=== PATIENT | female | born 1970 | race Caucasian/White ===

== ENCOUNTER 2024-02-11 19:12 | Observation (INO) | payer BC ==
[2024-02-11 19:57] LABS: #Basophils 0.02 10x3/uL (0.0-0.2); #Monocytes 1.03 10x3/uL (0.0-1.1); #Neutrophils 14.67 10x3/uL (1.5-8.4); %Basophils 0.1 % (0.0-2.0); %Monocytes 5.7 % (0.0-10.0); %Neutrophils 81.8 % (40.0-75.0); Hematocrit 36.1 % (34.9-44.5); Hemoglobin 12.9 g/dL (12.0-15.5); Mean Corpuscular HGB CONC 35.7 g/dL (32.0-36.0); Mean Corpuscular Hemoglobin 29.5 pg (27.0-33.0); Mean Corpuscular Volume 82.6 fL (81.6-98.3); Platelet Count 230 10x3/uL (150-450); RBC Distribution Width 12.2 % (11.5-14.5); Red Blood Cell (RBC) Count 4.37 10x6/uL (3.90-5.03)
[2024-02-11 20:13] LABS: ALT (SGPT) 16 U/L (8-55); AST (SGOT) 16 U/L (5-34); Albumin 3.7 g/dL (3.5-5.0); Alkaline Phosphatase 75 U/L (40-110); Anion Gap 13 mmol/L (10-20); BUN (Urea Nitrogen) 10 mg/dL (9.8-20.1); Bilirubin, Total 0.9 mg/dL (0.2-1.2); Calc. Creatinine Clearance 0 mL/min (70-130); Calcium 9.4 mg/dL (7.8-10.44); Carbon Dioxide 25 mmol/L (22-29); Chloride 101 mmol/L (98-107); Estimated GFR 82; Globulin 3.9 g/dL (2.4-3.5); Glucose 267 mg/dL (70-105); Lipase 11 U/L (8-78); Potassium 3.5 mmol/L (3.5-5.1); Protein, Total 7.6 g/dL (6.0-8.3); Sodium 135 mmol/L (136-145)
[2024-02-11] MEDS ORDERED: Ondansetron PF 4 MG/2 ML Vial ONE (20:15)
[2024-02-11 20:28] LABS: Bilirubin Neg (Negative); Blood, Urine Negative (Negative); Clarity Clear (Clear); Glucose, Urine (Dipstick) 250 mg/dL (Negative); Ketone, Urine Negative (Negative); Leukocyte Negative (Negative); Nitrite Negative (Negative); Protein, Urine (Dipstick) Negative (Neg-Trace); Specific Gravity, Urine 1.005 (1.005-1.030); Urobilinogen Normal mg/dL (Less than 2)
[2024-02-11 20:43] LABS: Bacteria/HPF None Seen HPF (None Seen); CAUTI Indications for Culture Pelvic or flank pain; RBC/HPF 0-3 HPF (0-3); Squamous Epithelial None Seen HPF (0-3); WBC/HPF 0-3 HPF (0-3)
[2024-02-11 20:44] LABS: Urine Culture Reflex No No
[2024-02-11] MEDS ORDERED: Piperacillin/Tazobactam 3.375 GM VIAL ONE (21:09)
[2024-02-11] MEDS ORDERED: Ketorolac Tromethamine 30 MG (1 mL) VIAL ONE (21:16)
[2024-02-11 23:10] VITALS: BMI 30.8
[2024-02-11] MEDS ORDERED: Ondansetron PF 4 MG/2 ML Vial IVP PRN (23:28)
[2024-02-11] MEDS ORDERED: Acetaminophen 325 MG TAB PO PRN (23:29)
[2024-02-12] MEDS: Sodium Chloride 0.9% 1,000 ML IV SCH (00:05)
[2024-02-12 08:22] VITALS: BP 128/60; TEMP 99.2
[2024-02-12] MEDS ORDERED: Morphine 4 MG/ML VIAL SLOW IVP PRN (10:24)
[2024-02-12] MEDS ORDERED: fentaNYL 50 mcg/mL 1 mL Vial ONE (10:50)
[2024-02-12] MEDS ORDERED: PROPOFOL 20 ML ONE (10:50)
[2024-02-12] MEDS ORDERED: Rocuronium Bromide 10 MG/ML (10ML VIAL) ONE (10:50)
[2024-02-12] MEDS ORDERED: SUGAMMADEX SODIUM 200 MG/2 ML VIAL ONE (10:50)
[2024-02-12] MEDS ORDERED: Ondansetron PF 4 MG/2 ML Vial ONE (10:50)
[2024-02-12] MEDS ORDERED: Dexamethasone 20 MG/5 ML VIAL ONE (10:50)
[2024-02-12] MEDS ORDERED: Lidocaine 1% PF 5 ML VIAL ONE (10:50)
[2024-02-12] MEDS ORDERED: Ketorolac Tromethamine 30 MG (1 mL) VIAL ONE (10:51)
[2024-02-12] MEDS ORDERED: EPINEPHrine 1 MG/ML VIAL ONE (10:56)
[2024-02-12] MEDS ORDERED: Bupivacaine 0.25% HCL 30 ML VIAL ONE (10:56)
[2024-02-12] MEDS ORDERED: Piperacillin/Tazobactam 3.375 GM VIAL ONE (11:17)
[2024-02-12] MEDS ORDERED: Piperacillin/Tazobactam 3.375 GM in Sodium Chloride 0.9% 100 ML IVPB SCH ×2 (12:00→20:00)
[2024-02-12] MEDS ORDERED: Acetaminophen/Codeine 30-300mg Tablet PO PRN (12:16)
[2024-02-12] MEDS: Piperacillin/Tazobactam 3.375 GM in Sodium Chloride 0.9% 100 ML IVPB SCH (14:19)
== END 2024-02-12 15:20 | disposition home or self-care (01) ==
LOC: CSHERS 19:12 → CSHTELE 21:36
PROVIDERS: ADMIT Student in an Organized Health Care Education/Training Program; ATTEND Student in an Organized Health Care Education/Training Program
PROC: 0DTJ4ZZ Resection of Appendix, Percutaneous Endoscopic Approach (ICD-10-PCS; principal; 2024-02-12)
DX: K35.80 Unspecified acute appendicitis (principal); Z79.899 Other long term (current) drug therapy
CPT/HCPCS: 36415; 36416; 74177; 81001; 83605; 83690; 87040; 96374; 96375; A4649; G0378; J0171; J0665; J1100; J1885; J2405; J2543; J2704; J3010; J3490; J7050